=== PATIENT | female | born 1990 | race Caucasian/White ===

== ENCOUNTER 2016-07-10 20:26 | Emergency (ER) | payer MEDICAID ==
[2016-07-10 20:50] VITALS: BP 135/92; PULSE 90; RESP 14; TEMP 97.9; O2SAT 97
[2016-07-10] MEDS ORDERED: IPRATROPIUM/ALBUTEROL 3 ML DEYVIAL IH ONE (20:57)
[2016-07-10] MEDS ORDERED: predniSONE 20 MG TAB PO ONE (21:23)
[2016-07-10] MEDS ORDERED: ALBUTEROL 3 ML DEYVIAL IH ONE (21:24)
[2016-07-10] MEDS ORDERED: IPRATROPIUM/ALBUTEROL 3 ML DEYVIAL ONE (21:25)
--- NOTE | 2016-07-10 21:36 | UCPHY ---
H & P Time Seen by Provider: 07/10/16 20:51 Patient Type: New Smoking Status: Never smoked Constitutional: Initial Vital Signs Temperature (C) 36.6 C 07/10/16 20:48 Heart Rate 90 07/10/16 20:48 Respiratory Rate 14 07/10/16 20:48 Blood Pressure 135/92 H 07/10/16 20:48 O2 Sat (%) 97 07/10/16 20:48 O2 Delivery Mode Room Air Allergies/Adverse Reactions: sulfamethoxazole [From Septra] Allergy (Verified 07/10/16 20:47) trimethoprim [From [facility]ra] Allergy (Verified 07/10/16 20:47) Home Medications: Medication Instructions Recorded Albuterol 07/10/16 Albuterol Hfa Anes Only [Proair 2 puffs IH Q4 PRN #1 mdi 07/10/16 Hfa Icu (*)] Singulair 07/10/16 predniSONE 40 mg PO DAILY #10 tab 07/10/16 MDM/Departure - MDM Medications Given: Discontinued Medications Albuterol/Ipratropium (Duoneb) 3 ml IH EDNOW ONE Stop: 07/10/16 20:58 Last Admin: 07/10/16 21:05 Dose: 3 ml - Depart Disposition: Home, Routine, Self-Care Clinical Impression: Exacerbation of asthma Condition: Good Instructions: Asthma (ED) Additional Instructions: Diagnosis: Asthma exacerbation Plan: Albuterol inhaler with spacer-2-4 puffs every 4 hours as needed for cough , wheeze or shortness of breath Prednisone as prescribed-next dose after breakfast tomorrow Romulo primary physician to arrange follow-up appointment for recheck within the next 1-3 days Go to the emergency department for any significant worsening despite treatment plan Keep track of your peak flow to monitor your improvement or monitor any worsening Prescriptions: Albuterol Hfa Anes Only [Proair Hfa Icu (*)] 2 puffs IH Q4 PRN #1 mdi PRN Reason: Wheezing predniSONE 40 mg PO DAILY #10 tab - PQRS PQRS Measurement: NA
== END 2016-07-10 21:50 | disposition home or self-care (01) ==
LOC: CED 20:26
DX: J45.909 Unspecified asthma, uncomplicated (principal)
CPT/HCPCS: G0463-PO